=== PATIENT | female | born 1980 | race Asian ===

== ENCOUNTER 2018-12-21 14:30 | Outpatient (CLI) | payer OTHER | END 2018-12-21 23:59 | disposition home or self-care (01) | LOC: LAB.R 14:30 | PROVIDERS: ATTEND Obstetrics & Gynecology | DX: Z34.83 Encounter for supervision of other normal pregnancy, third trimester (principal) | CPT/HCPCS: 87797 ==

== ENCOUNTER 2019-01-01 13:37 | Outpatient (CLI) | payer OTHER ==
--- NOTE | 2019-01-01 15:21 | Ultrasound Report ---
Reason: SUPERVISON OF NORMAL THIRD TRIMESTER Procedure Date: 01/01/2019 Accession Number: [id number] / [id number] Procedure: US - OB F/U or Repeat CPT Code: Final Report FULL RESULT: EXAM: FOLLOW-UP OBSTETRICAL ULTRASOUND EXAM DATE: 01/01/2019 02:57 PM. CLINICAL HISTORY: Follow-up history of marginal cord origin from placenta COMPARISON: Previous done in [place]. TECHNIQUE: Real-time sonographic evaluation of the fetus performed by the junior high math teacher. Multiple floor representative static images were saved for review. DATING: Established EGA 37 weeks 1 day with ROMÁN 01/21/2019 based on provider stated dating. GENERAL EVALUATION [place] . Cardiac activity: 137 bpm. movement: Visualized. Presentation: Cephalic. Placenta: Anterior position. Amniotic fluid: Normal. [place] 12.7 cm. MVP 6.8 cm. Cord origin from the placenta could not be identified IMPRESSION: 1. Leger live intrauterine with gestational age 37 weeks 1 day EDC 01/21/2019 based on provider stated dating. 2. Cord origin from the placenta could not be identified
== END 2019-01-01 13:38 | disposition home or self-care (01) ==
LOC: DI 13:37
PROVIDERS: ATTEND Obstetrics & Gynecology
DX: Z34.83 Encounter for supervision of other normal pregnancy, third trimester (principal)
CPT/HCPCS: 76816

== ENCOUNTER 2019-01-10 06:25 | Inpatient (IN) | payer OTHER ==
[2019-01-10] MEDS ORDERED: LACTATED RINGERS 1,000 ML IV ONE (08:18)
[2019-01-10] MEDS ORDERED: SODIUM CHLORIDE FLUSH 0.9% 10 ML SYRINGE ONE (08:19)
[2019-01-10] MEDS ORDERED: fentaNYL 100 MCG/2 ML VIAL IVP PRN (09:02)
[2019-01-10] MEDS ORDERED: SODIUM CHLORIDE FLUSH 0.9% 10 ML SYRINGE IVP PRN (09:02)
--- NOTE | 2019-01-10 09:10 | PROVIDER PROGRESS NOTE ---
Labor Progress Note - Uterine Monitoring Uterine Monitoring Mode: positive: External toco Contraction Frequency (min/apart): 5-7 Contraction Intensity: positive: Mild to moderate Uterine Resting Tone: positive: Soft - Monitoring Heart Rate Baseline: 135 Heart Rate Variability: positive: Moderate (6-25 bmp) Accelerations: positive: Present, 15x15 Decelerations: positive: None Strip Review: positive: Category I - Vaginal Exam Dilation (in cm): 5 Effacement (%): 80 Station: -1 Cervical Position: Midposition - Labor Progress Note Labor Progress Note/Additional Text: Labor marginal insertion of the cord Hx of 2 hourlabor
[2019-01-10 09:12] LABS: BASOPHILS % (AUTO) 0.2 %; EOSINOPHILS # (AUTO) 0.1 10^3/uL (0.0-0.7); EOSINOPHILS % (AUTO) 0.6 %; HGB - HEMOGLOBIN 12.6 g/dL (12.0-16.0); LYMPHOCYTES % (AUTO) 12.4 %; MEAN CORPUSCULAR HEMOGLOBIN 31.6 pg (27.0-31.0); MEAN CORPUSCULAR HGB CONC 33.7 g/dL (32.0-36.0); MEAN CORPUSCULAR VOLUME 93.7 fL (81.0-99.0); MEAN PLATELET VOLUME 10.7 fL (7.9-10.8); MONOCYTES # (AUTO) 0.6 10^3/uL (0.0-1.0); MONOCYTES % (AUTO) 7.7 %; NEUTROPHILS # (AUTO) 6.5 10^3/uL (1.5-6.6); NEUTROPHILS % (AUTO) 78.3 %; PLT - PLATELET COUNT 255 10^3/uL (130-450); RED BLOOD COUNT 3.99 10^6/uL (4.20-5.40); RED CELL DISTRIBUTION WIDTH 13.9 % (12.0-15.0); WHITE BLOOD COUNT 8.3 x10^3/uL (4.8-10.8)
--- NOTE | 2019-01-10 09:45 | HISTORY & PHYSICAL EXAMINATION ---
DATE OF SERVICE: 01/10/2019 Physician: Oliverio Ramos MD IDENTIFICATION: Patient is a 38-year-old G2, P1. Her EDC is 01/21. This was determined by early vi sits and ultrasound. CHIEF COMPLAINT: Labor. HISTORY OF PRESENT ILLNESS: Patient was seen in the office yesterday, at which time she was 4 cm, 75 % effaced, -2 vertex presentation. She was not strongly ethel at that time. She has a history of having a marginal insertion of cord so this was one of the concerns. She also has a history of r apid labors. Her first child was delivered 2 hours following the onset of labor. For this reason, s yumi was instructed to present to labor and delivery. Her OB care started with the [facility] early. She tr ansferred to our care at 35 weeks. Her laboratories showed her to be O positive, rubella immune, hep atitis B, GC, chlamydia, HIV and RPR negative. She had a 50 gram Glucola, which was 134. PAST MEDICAL HISTORY: Patient denies any hypertensive, diabetic, cardiac or pulmonary disease. SURGICAL HISTORY: None. ALLERGIES: NONE KNOWN. HABITS: Patient denies use of alcohol, tobacco, street or addictive drugs. SOCIAL HISTORY: Patient has recently been [employer] in. She is and lives with an active duty Justin y spouse. PHYSICAL EXAMINATION GENERAL: Well-developed, well-nourished female, in no acute distress at this time. She is having mi ld to moderate contractions with time. HEENT: Pupils are equal, round. Extraocular muscles are intact. Thyroid is not palpably enlarged. HEART: Regular rate and rhythm without murmurs. LUNGS: Lung gaitan are clear without rales or wheezes. BACK: No spinal or CVA tenderness noted. ABDOMEN: Uterus is gravid, roughly 38 cm at her last visit. PELVIC: Cervical examination shows her cervix to be 5 cm. She is 80% effaced. She is -1. The cerv ix is midposition. EXTREMITIES: DTRS are trace to absent. She shows no evidence of any swelling or calf tenderness. IMPRESSION 1. A 38-year-old G2, P1, female EDC 01/21, making her 38.3 weeks. 2. Labor. 3. Marginal insertion of the cord. PLAN: Artificial rupture of membranes so her delivery can be done in a controlled setting. Risks an d benefits have been explained to the patient and consent has been signed. TD: 01/10/2019 09:23
[2019-01-10] MEDS ORDERED: LACTATED RINGERS 1,000 ML IV SCH (10:00)
--- NOTE | 2019-01-10 13:32 | PROVIDER PROGRESS NOTE ---
Labor Progress Note - Labor Progress Note Labor Progress Note/Additional Text: SVE changed 1cm in 4h. UC pattern is not adequate though individual UCs are painful. Pt would like to avoid pitocin use. Will try breast pump for augmentation first.
[2019-01-10] MEDS ORDERED: ROPIVACAINE 0.2% 200 MG/100 ML BAG EP ONE (14:07)
[2019-01-10] MEDS ORDERED: ONDANSETRON 4 MG/2 ML VIAL IVP PRN (14:43)
[2019-01-10] MEDS ORDERED: NALBUPHINE 10 MG/ML AMP IVP PRN (14:43)
[2019-01-10] MEDS ORDERED: METOCLOPRAMIDE 10 MG/2 ML VIAL IVP PRN (14:43)
[2019-01-10] MEDS ORDERED: ePHEDrine 50 MG/ML VIAL IVP PRN (14:43)
[2019-01-10] MEDS ORDERED: LACTATED RINGERS 500 ML IV ONE (14:43)
[2019-01-10] MEDS ORDERED: NALOXONE 0.4 MG/ML VIAL IVP PRN (14:43)
[2019-01-10] MEDS ORDERED: ROPIVACAINE 0.2% 200 MG/100 ML BAG EP PRN (14:43)
[2019-01-10] MEDS ORDERED: diphenhydrAMINE INJ 50 MG/ML VIAL IVP PRN (14:43)
--- NOTE | 2019-01-10 14:48 | ANESTHESIA ---
Pre-Anesthesia VS, & Labs - Diagnosis active labor - Procedure labor epidural Vital Signs: Temp Pulse Resp BP Pulse Ox 36.9 C 114 H 18 125/81 H 99 01/10/19 12:10 01/10/19 12:10 01/10/19 12:10 01/10/19 12:10 01/10/19 12:10 Height 5 ft 4.57 in Weight (kg) 63.775 kg - NPO >8 hours - Is Patient ?: Yes - Lab Results Current Lab Results: Laboratory Tests 01/10/19 08:31: WBC 8.3, RBC 3.99 L, Hgb 12.6, Hct 37.4, MCV 93.7, MCH 31.6 H, MCHC 33.7, RDW 13.9, Plt Count 255, MPV 10.7, Neut # (Auto) 6.5, Lymph # (Auto) 1.0 L, [place] # (Auto) 0.6, Eos # (Auto) 0.1, Baso # (Auto) 0.0, Absolute Nucleated RBC 0.00, Nucleated RBC % 0.0 Lab results reviewed: Yes Fish Bones: 01/10/19 08:31 Home Medications and Allergies Active Medications Diphenhydramine HCl (Benadryl Inj) 12.5 - 25 mg IVP Q6HR PRN PRN Reason: ITCHING Ephedrine Sulfate () 5 mg IVP Q5M PRN PRN Reason: For SBP<100;give until SBP>100 Fentanyl (Fentanyl) 50 mcg IVP Q1H PRN PRN Reason: PAIN Lactated Ringer's (Lr) 1,000 mls @ 150 mls/hr IV .Q6H40M TREY Lactated Ringer's (Lr) 500 mls @ 999 mls/hr IV ONCE ONE Stop: 01/10/19 15:13 Ropivacaine (Naropin 0.2%) 200 mg in 100 mls @ 0 mls/hr EP PRN PRN; Protocol PRN Reason: PAIN Metoclopramide HCl (Reglan Inj) 10 mg IVP Q6HR PRN PRN Reason: Nausea / Vomiting Nalbuphine HCl (Nubain) 2.5 - 5 mg IVP Q4H PRN PRN Reason: ITCHING Naloxone HCl (Narcan) 0.1 mg IVP Q2M PRN PRN Reason: RR<8 Ondansetron HCl (Zofran Inj) 4 mg IVP Q6HR PRN PRN Reason: Nausea / Vomiting Sodium Chloride (Normal Saline Flush 0.9%) 10 ml IVP PRN PRN PRN Reason: NEEDED PER PROVIDER ORDERS Sodium Chloride (Normal Saline Flush 0.9%) 10 ml IVP 0100,0900,1700 TREY Anes History & Medical History - Anesthetic History Anesthesia Complications: reports: No previous complications - Medical History Cardiovascular: reports: None Pulmonary: reports: None Gastrointestinal: reports: None Urinary: reports: None Neuro: reports: None Musculoskeletal: reports: None Endocrine/Autoimmune: reports: None Blood Disorders: reports: None Skin: reports: None Smoking Status: Never smoker Psychosocial: reports: No issues indicated Exam General: Alert Dental: WNL Mouth Opening: Greater than 4 Fingerbreadths Mallampati classification: II Respiratory: Lungs clear Cardiovascular: Regular rate Plan Anesthesia Type: Epidural Consent for Procedure(s) Verified and Reviewed: Yes Code Status: Attempt Resuscitation ASA classification: 2-Mild systemic disease Is this case an emergency?: No
[2019-01-10] MEDS ORDERED: OXYTOCIN/DEXTROSE 5 % 30 UNIT/500 ML BAG IV ONE (15:09)
[2019-01-10] MEDS ORDERED: OXYTOCIN/DEXTROSE 5 % 30 UNIT/500 ML BAG IV PRN (15:41)
--- NOTE | 2019-01-10 16:37 | DELIVERY NOTE ---
Delivery Note - Labor Labor: positive: Augmented by ARM - Infant Delivery Method Infant Delivery Method: positive: Spontaneous vaginal delivery - Presentation Presentation: positive: Vertex - Nuchal Cord Nuchal Cord: positive: None - Anesthetic Anesthetic Type: - Amniotic Fluid Description Amniotic Fluid Description: positive: Clear - Episiotomy Type Episiotomy Type: positive: None - Laceration Laceration: positive: 1st degree (In area of prior scar. Repaired with one suture of 4-0 vicryl), Sulcus (Pt's right side, shallow but bleeding, oversewn with a figure of 8 of 2-0 vicryl.) - Suture Suture Type: positive: Vicryl Suture Size: positive: 2-0, 4-0 - Delivery Outcome Delivery Outcome: positive: Livebirth - Parker: positive: Placed in direct skin contact with mother, Stimulated, Warmed, [place] used sex: positive: Male (Apgars 9/9.) - Cord Cord: positive: 3 vessels - Placenta Placenta: positive: Intact - Estimated Blood Loss Estimated Blood Loss (in cc): 100 - Post Delivery Events Post Delivery Events: positive: No post delivery events - Delivery Comments (Free Text/Narrative) Delivery Comments (Free Text/Narrative): Augmented for marginal cord insertion. Starting SVE was 5cm. Underwent AROM. Contractions spaced and used a breast pump to bring back a labor pattern. Pushed effectively for about 30min. Family is bonding, baby is near the breast. Anticipate routine PP care. Rh+, rubella immune, s/p flu vax and Tdap.
[2019-01-10] MEDS ORDERED: SODIUM CHLORIDE FLUSH 0.9% 10 ML SYRINGE IVP SCH (17:00)
[2019-01-10] MEDS ORDERED: MAGNESIUM HYDROXIDE 2,400 MG/30 ML UDC PO PRN (17:20)
[2019-01-10] MEDS ORDERED: HYDROCORTISONE 1% CREAM 28 GM TUBE PR PRN (17:20)
[2019-01-10] MEDS ORDERED: WITCH HAZEL/GLYCERIN 1 PAD TOP PRN (17:20)
[2019-01-10] MEDS: IBUPROFEN 600 MG TABLET PO SCH (17:40)
[2019-01-10] MEDS: ACETAMINOPHEN 500 MG TABLET PO PRN (17:41)
[2019-01-10] MEDS: DOCUSATE SODIUM 100 MG CAPSULE PO SCH (20:56)
[2019-01-11] MEDS: IBUPROFEN 600 MG TABLET PO SCH ×3 (00:05→18:19)
[2019-01-11] MEDS: ACETAMINOPHEN 500 MG TABLET PO PRN ×3 (02:07→18:19)
--- NOTE | 2019-01-11 08:07 | PROVIDER PROGRESS NOTE ---
Subjective - Prog Note Date Prog Note Date: 01/11/19 Prog Note Time: 08:00 - Subjective Pt reports feeling: Improved (Pain 04/30, breast, feeding milk not in yet.) Objective - Vital Signs/Intake & Output Reviewed Vital Signs: Yes Vital Signs: Vital Signs x48h Temp Pulse Resp BP Pulse Ox 01/11/19 04:31 36.6 C 69 14 115/71 100 01/11/19 00:35 36.8 C 83 18 117/65 100 Intake & Output: Intake & Output 01/08/19 01/09/19 01/10/19 01/11/19 23:59 23:59 23:59 23:59 Intake Total 1250 300 Output Total 1200 Balance 50 300 - Objective General Appearance: positive: No acute distress Respiratory: positive: Chest non-tender, No respiratory distress, Breath sounds nml Cardiovascular: positive: Regular rate & rhythm, No murmur, No gallop Abdomen: positive: Non-tender, No organomegaly, Nml bowel sounds, Mass (Mass u- 2) Back: negative: CVA tenderness (R), CVA tenderness (L) Skin: positive: Color nml, No rash, Warm, Dry Extremities: negative: Calf tenderness, Lena's sign/cords - Lab Results Fish Bones: 01/11/19 07:13 Other Labs: Lab Results x24hrs 01/11/19 01/10/19 Range/Units 07:13 08:31 WBC 8.3 (4.8-10.8) x10^3/uL RBC 3.99 L (4.20-5.40) 10^6/uL Hgb 12.3 12.6 (12.0-16.0) g/dL Hct 37.4 (37.0-47.0) % MCV 93.7 (81.0-99.0) fL MCH 31.6 H (27.0-31.0) pg MCHC 33.7 (32.0-36.0) g/dL RDW 13.9 (12.0-15.0) % Plt Count 255 (130-450) 10^3/uL MPV 10.7 (7.9-10.8) fL Neut # (Auto) 6.5 (1.5-6.6) 10^3/uL Lymph # (Auto) 1.0 L (1.5-3.5) 10^3/uL [place] # (Auto) 0.6 (0.0-1.0) 10^3/uL Eos # (Auto) 0.1 (0.0-0.7) 10^3/uL Baso # (Auto) 0.0 (0.0-0.1) 10^3/uL Absolute Nucleated RBC 0.00 x10^3/uL Nucleated RBC % 0.0 /100WBC Assessment/Plan - Problem List (1) (spontaneous vaginal delivery) Impression: lwill Discharge when Oked with Peds.
[2019-01-11] MEDS: DOCUSATE SODIUM 100 MG CAPSULE PO SCH (10:18)
[2019-01-12] MEDS: IBUPROFEN 600 MG TABLET PO SCH ×3 (00:15→12:14)
[2019-01-12] MEDS: DOCUSATE SODIUM 100 MG CAPSULE PO SCH ×2 (00:15→09:14)
[2019-01-12] MEDS: ACETAMINOPHEN 500 MG TABLET PO PRN ×2 (02:21→12:14)
--- NOTE | 2019-01-12 07:40 | PROVIDER PROGRESS NOTE ---
Subjective - Subjective Subjective: See discahrge summary Objective - Vital Signs/Intake & Output Vital Signs: Vital Signs x48h Temp Pulse Resp BP Pulse Ox 01/12/19 04:30 97.9 F 65 18 112/77 99 Intake & Output: Intake & Output 01/09/19 01/10/19 01/11/19 01/12/19 23:59 23:59 23:59 23:59 Intake Total 1250 300 Output Total 1200 Balance 50 300 - Lab Results Fish Bones: 01/11/19 07:13 Other Labs: Lab Results x24hrs 01/11/19 Range/Units 07:13 Hgb 12.3 (12.0-16.0) g/dL
--- NOTE | 2019-01-12 07:45 | Discharge Plan ---
Discharge Plan Problem Reviewed?: Yes Disposition: Home, Self Care Condition: Good Diet: Regular Activity Restrictions: nothing in the vagina for 6w Shower Restrictions: No Driving Restrictions: No No Smoking: If you smoke, Please STOP! Call for help. Follow-up with: Oliverio Ramos MD [Provider Admit Priv/Credential] - 2 Weeks
--- NOTE | 2019-01-12 10:31 | DISCHARGE SUMMARY ---
Physician: Liv Crump MD DATE OF ADMISSION: 01/10/2019 DATE OF DISCHARGE: 01/12/2019 ADMITTING DIAGNOSES: 1. Marginal placental insertion. 2. Intrauterine at term. DISCHARGE DIAGNOSES: 1. Status post spontaneous vaginal delivery at term. 2. Intrauterine at term. OPERATIONS AND PROCEDURES: On 01/10/2019 spontaneous vaginal delivery of a liveborn male, Apgars wer e 9 at 1 minute and 9 at 5 minutes. Estimated blood loss was 100 mL. He weighed 7 pounds 2 ounces. HOSPITAL COURSE: Patient was admitted for induction of labor due to her marginal cord insertion and a starting dilation of 5 cm. She was induced with an AROM and she had an uncomplicated antepartum an d . Her course was also uncomplicated. Her prior had a history of needing ph ototherapy for quite some time. Cord blood was Lauren positive and so the baby underwent early photo therapy, but is likely to go home today. On day 2, the patient was eating, ambulating, ur inating, and without difficulties. She did not yet have milk in. She did not have any heavy bleeding or significant pain. Her mood was good and she was able to get some sleep. DISCHARGE EXAMINATION: She was afebrile with normal vital signs. She is alert and smiling, in no ap parent distress. ABDOMEN: Soft, nontender, nondistended. Fundus firm, nontender, and 2 cm below th e umbilicus. Lower extremities without clubbing, cyanosis or edema. Post- hemoglobin was 12.3 . DISCHARGE MEDICATIONS: 1. Continue vitamins daily. 2. Ibuprofen and Tylenol p.r.n. pain. 4. Colace p.r.n. to soften stool. DISCHARGE INSTRUCTIONS: Routine instructions given. The patient is undecided about contr aception. DISCHARGE DISPOSITION: Home. DISCHARGE CONDITION: Good. Follow up in [address] Ramos. TD: 01/12/2019 08:48
[2019-01-12 13:26] VITALS: BP 119/78
--- NOTE | 2019-01-12 15:22 | Labor Flowsheet ---
Labor Flowsheet Datetime Report Generated by CPN: 01/12/2019 15:21 Datetime: 01/12/2019 13:22 VITAL SIGNS NBP Sys/Rocio/Mean (mmHg): 119 : 78 : 85 Pulse: 72 LaborFlag: Labor Datetime: 01/11/2019 20:24 SpO2 (%): 100 Datetime: 01/10/2019 15:41 UTERINE ACTIVITY Monitor Mode: External Frequency (min): 2-4 Quality: Strong Duration (sec): 50-70 Pattern: Normal: <= 5 Contractions in 10 Minutes Resting Tone (Palpate): Relaxed ASSESSMENT A Monitor Mode: Telemetry FHR Baseline Rate : 130 Variability: Moderate 6-25 bpm Accelerations: None Decelerations: None Category: Category I Oxygen Method: Room Air STAGE 2 Pushing: Coached on Pushing; Urge to Push Pushing Position: Pushing with Contractions Pushing Progress: Descent with Pushing Datetime: 01/10/2019 15:27 Patient Position/Activity: Left Lateral Datetime: 01/10/2019 15:12 VAGINAL EXAM Dilatation (cm): 10.0 Effacement (%): 100 Station: 2 Exam by: Dr. Crump Datetime: 01/10/2019 15:10 COMMUNICATION Communication: Provider at Bedside Datetime: 01/10/2019 15:02 Provider Notified (Name): Dr. Theron Communication Comments: cervical exam Datetime: 01/10/2019 14:44 Pain Presence: None/Denies Pain Coping: Sleeping Datetime: 01/10/2019 14:35 Respirations: 20 Temperature (C): 36.7 Temperature Route: Oral Datetime: 01/10/2019 14:32 Epidural Procedure Other: Pump Started Datetime: 01/10/2019 14:26 Epidural Procedure: Loading Dose Datetime: 01/10/2019 14:18 Anesthesia Comments: local Datetime: 01/10/2019 14:13 PATIENT CARE IV/Blood Work: IV Bolus Given ml @ 999 Datetime: 01/10/2019 14:11 ANESTHESIA Anesthesia Plans: Epidural Datetime: 01/10/2019 14:04 I/O Interventions: Up to BR Datetime: 01/10/2019 13:58 PAIN Pain Scale: 10 Pain Type: Contraction Pain Location: Abdomen Pain Relief Measures: Comfort Measures Comfort Measures: Breathing/Relaxation; Family Support Datetime: 01/10/2019 13:53 Patient Care Comments: patient dangle at edge of bed Datetime: 01/10/2019 13:48 MEDICATIONS Medication Comments: breast pump for 10 minutes initiated Datetime: 01/10/2019 13:30 Monitor Interventions for UA: [place] Adjusted Monitor Interventions for FHR: Ultrasound Adjusted Comments: patient with frequent postion changes, Datetime: 01/10/2019 13:05 Notification Reason: Labor Status Datetime: 01/10/2019 13:03 Cervix, Consistency: Soft Cervix, Position: Midposition Datetime: 01/10/2019 10:14 Hygiene: [place] Care
== END 2019-01-12 15:00 | disposition home or self-care (01) | DRG 807 ==
LOC: WFO 06:25 → FBP 06:30 → WFO 09:01 → FBP 09:02
PROVIDERS: ADMIT Obstetrics & Gynecology; ATTEND Obstetrics & Gynecology
PROC: 10E0XZZ Delivery of Products of Conception, External Approach (ICD-10-PCS; principal; 2019-01-10)
PROC: 0HQ9XZZ Repair Perineum Skin, External Approach (ICD-10-PCS; 2019-01-10)
PROC: 10907ZC Drainage of Amniotic Fluid, Therapeutic from Products of Conception, Via Natural or Artificial Opening (ICD-10-PCS; 2019-01-10)
DX: O43.193 Other malformation of placenta, third trimester (principal); Z37.0 Single live birth; O70.0 First degree perineal laceration during delivery; Z3A.38 38 weeks gestation of pregnancy; Z87.898 Personal history of other specified conditions
CPT/HCPCS: 36415; 85018; 85025; A9270; J7120